=== PATIENT | female | born 1985 | race Caucasian/White ===

== ENCOUNTER 2017-01-02 16:03 | Inpatient (IN) | payer MEDICARE ==
[~2017-01-02] VITALS: Ht 177.8 cm; Wt 106.6 kg
[2017-01-02 17:39] VITALS: BP 97/60
[2017-01-02] MEDS ORDERED: PNEUMOCOCCAL VACCINE POLYVALENT 0.5 ML VIAL [PPSV23] IM ONE (18:00)
[2017-01-02 18:58] VITALS: BP 115/51
[2017-01-02] MEDS ORDERED: DULO30CA2 PO (19:28)
[2017-01-02] MEDS ORDERED: FURO40 PO (19:28)
[2017-01-02] MEDS ORDERED: TIZA4TAB4 PO (19:28)
[2017-01-02] MEDS ORDERED: TRAZ150 PO (19:28)
[2017-01-02] MEDS ORDERED: LOSA50TA37 PO (19:28)
[2017-01-02] MEDS ORDERED: LOVA20 PO (19:28)
[2017-01-02] MEDS ORDERED: OXYC10 PO (19:28)
[2017-01-02] MEDS ORDERED: CIP250 PO (19:28)
[2017-01-02] MEDS ORDERED: DOXY150T PO (19:28)
[2017-01-02] MEDS ORDERED: WARF5 PO (19:28)
[2017-01-02] MEDS ORDERED: PREG75 PO (19:28)
[2017-01-02] MEDS ORDERED: ATEN25TA PO (19:28)
[2017-01-02] MEDS ORDERED: VIST50 PO (19:28)
[2017-01-02] MEDS ORDERED: DULO60CA44 PO (19:28)
[2017-01-02] MEDS ORDERED: WARF2.5 PO (19:28)
[2017-01-02] MEDS ORDERED: POTA8CAP10 PO (19:28)
[2017-01-02] MEDS: DULoxetine HCL 30 MG CAPSULE PO SCH (20:03)
[2017-01-02] MEDS ORDERED: ACETAMINOPHEN 325 MG TABLET PO PRN (21:15)
[2017-01-03 01:10] VITALS: BP 112/68
[2017-01-03] MEDS: IBUPROFEN 600 MG TABLET PO PRN (05:57)
[2017-01-03 08:24] LABS: BASOPHILS # (AUTO) 0.06 K/uL (0.00-0.20); BASOPHILS % (AUTO) 0.6 % (0.0-2.0); EOSINOPHILS # (AUTO) 0.18 K/uL (0.00-0.70); EOSINOPHILS % (AUTO) 1.82 % (1.0-6.0); HEMATOCRIT 33.5 % (36-46); HEMOGLOBIN 10.9 g/dL (12.0-16.0); LYMPHOCYTES # (AUTO) 2.6 K/uL (1.0-4.8); LYMPHOCYTES % (AUTO) 27.6 % (22.0-44.0); MEAN CORPUSCULAR HEMOGLOBIN 28.4 pg (26.0-34.0); MEAN CORPUSCULAR HGB CONC 32.7 G/dL (31.0-37.0); MEAN CORPUSCULAR VOLUME 87 fL (80-100); MONOCYTES # (AUTO) 0.8 K/uL (0.1-1.0); MONOCYTES % (AUTO) 8.1 % (2.0-9.0); NEUTROPHILS # (AUTO) 5.9 K/uL (1.8-7.7); NEUTROPHILS % (AUTO) 61.9 % (40.0-70.0); PLATELET COUNT (AUTO) 241 K/uL (150-450); RED BLOOD CELL COUNT(AUTO) 3.85 MIL/uL (4.00-5.20); RED CELL DISTRIBUTION WIDTH 14.8 % (11.5-14.5); WHITE BLOOD COUNT (AUTO) 9.6 K/uL (4.5-11.0)
[2017-01-03 08:32] LABS: INR 1.8 (0.9-1.1); PROTHROMBIN TIME 18.8 SEC (9.4-11.6)
[2017-01-03 08:39] LABS: HEMOGLOBIN A1C 5.7 % (4.5-6.2)
[2017-01-03 09:15] LABS: ALANINE AMINOTRANSFERASE 36 U/L (12-78); ALBUMIN 3.1 g/dL (3.4-5.0); ANION GAP 9 mmol/L (8-16); ASPARTATE AMINOTRANSFERASE 23 U/L (15-37); BILIRUBIN,TOTAL 0.3 mg/dL (0.1-1.0); CALCIUM, TOTAL 8.2 mg/dL (8.8-10.5); CARBON DIOXIDE 24 mmol/L (22-29); CHLORIDE 108 mmol/L (98-107); CHOL/HDL RATIO 4.2 (3.9-5.7); CREATININE 2.21 mg/dL (0.60-1.30); GLOMERULAR FILTR. RATE CALC 26 mL/min (>60); POTASSIUM 3.8 mmol/L (3.5-5.1); SODIUM SERUM 141 mmol/L (136-145); TOTAL PROTEIN, SERUM 6.4 g/dL (6.4-8.2); UREA NITROGEN, BLOOD 33 mg/dL (7-18)
[2017-01-03] MEDS: DULoxetine HCL 60 MG CAPSULE PO SCH (09:42)
[2017-01-03] MEDS: FUROSEMIDE 40 MG TABLET PO SCH (09:42)
[2017-01-03] MEDS: POTASSIUM CHLORIDE 20 MEQ ER TABLET PO SCH (09:42)
[2017-01-03] MEDS: ATENOLOL 25 MG TABLET PO SCH (09:43)
[2017-01-03] MEDS: CIPROFLOXACIN HCL 250 MG TABLET PO SCH ×2 (09:43→20:22)
[2017-01-03] MEDS: NICOTINE 21 MG/24 HOUR PATCH TD SCH (09:44)
[2017-01-03 10:31] VITALS: BP 115/71
[2017-01-03] MEDS: DOXYCYCLINE 100 MG CAPSULE PO SCH ×2 (10:56→20:22)
[2017-01-03] MEDS: LORazepam 2 MG TABLET PO PRN (12:20)
[2017-01-03] MEDS: HALOPERIDOL 5 MG TABLET PO PRN (12:20)
[2017-01-03] MEDS: ACETAMINOPHEN/CODEINE 300-30 MG TABLET PO PRN (12:31)
[2017-01-03 16:00] VITALS: BP 140/73
[2017-01-03] MEDS: DULoxetine HCL 30 MG CAPSULE PO SCH (16:13)
[2017-01-03] MEDS ORDERED: DULoxetine HCL 30 MG CAPSULE PO SCH (17:00)
[2017-01-03] MEDS: LOVASTATIN 20 MG TABLET PO SCH (20:22)
[2017-01-03] MEDS: ZOLPIDEM TARTRATE 10 MG TABLET PO PRN (20:48)
[2017-01-04 00:59] VITALS: BP 114/66
[2017-01-04] MEDS: LORazepam 2 MG TABLET PO PRN (01:06)
[2017-01-04] MEDS: HALOPERIDOL 5 MG TABLET PO PRN (01:06)
[2017-01-04 07:26] LABS: INR 1.3 (0.9-1.1); PROTHROMBIN TIME 13.2 SEC (9.4-11.6)
[2017-01-04] MEDS: NICOTINE 21 MG/24 HOUR PATCH TD SCH (09:08)
[2017-01-04] MEDS: DOXYCYCLINE 100 MG CAPSULE PO SCH ×2 (09:09→20:14)
[2017-01-04] MEDS: DULoxetine HCL 60 MG CAPSULE PO SCH (09:09)
[2017-01-04] MEDS: ATENOLOL 25 MG TABLET PO SCH (09:09)
[2017-01-04] MEDS: POTASSIUM CHLORIDE 20 MEQ ER TABLET PO SCH (09:09)
[2017-01-04] MEDS: FUROSEMIDE 40 MG TABLET PO SCH (09:09)
[2017-01-04] MEDS: CIPROFLOXACIN HCL 250 MG TABLET PO SCH ×2 (09:09→20:14)
[2017-01-04 10:02] VITALS: BP 108/68
[2017-01-04] MEDS: ACETAMINOPHEN/CODEINE 300-30 MG TABLET PO PRN ×2 (10:02→20:14)
[2017-01-04] MEDS ORDERED: PSEUDOEPHEDRINE HCL 30 MG TABLET PO PRN (12:00)
[2017-01-04] MEDS: DULoxetine HCL 30 MG CAPSULE PO SCH (16:09)
[2017-01-04 16:45] VITALS: BP 130/84
[2017-01-04 20:00] VITALS: BP 122/78
[2017-01-04] MEDS: LOVASTATIN 20 MG TABLET PO SCH (20:14)
[2017-01-05 00:18] VITALS: BP 110/69
[2017-01-05] MEDS: IBUPROFEN 600 MG TABLET PO PRN (00:21)
[2017-01-05] MEDS: ZOLPIDEM TARTRATE 10 MG TABLET PO PRN (00:22)
[2017-01-05 05:25] VITALS: BP 130/78
[2017-01-05] MEDS: ACETAMINOPHEN/CODEINE 300-30 MG TABLET PO PRN ×2 (05:27→16:21)
[2017-01-05 08:12] LABS: INR 1.2 (0.9-1.1); PROTHROMBIN TIME 12.2 SEC (9.4-11.6)
[2017-01-05] MEDS: NICOTINE 21 MG/24 HOUR PATCH TD SCH (09:31)
[2017-01-05] MEDS: CIPROFLOXACIN HCL 250 MG TABLET PO SCH ×2 (09:32→20:18)
[2017-01-05] MEDS: DOXYCYCLINE 100 MG CAPSULE PO SCH ×2 (09:32→20:19)
[2017-01-05] MEDS: FUROSEMIDE 40 MG TABLET PO SCH (09:32)
[2017-01-05] MEDS: POTASSIUM CHLORIDE 20 MEQ ER TABLET PO SCH (09:32)
[2017-01-05] MEDS: ATENOLOL 50 MG TABLET PO SCH (09:33)
[2017-01-05] MEDS: DULoxetine HCL 60 MG CAPSULE PO SCH (09:36)
[2017-01-05 09:59] VITALS: BP 131/67
[2017-01-05 16:19] VITALS: BP 118/74
[2017-01-05] MEDS: DULoxetine HCL 30 MG CAPSULE PO SCH (16:20)
[2017-01-05] MEDS: WARFARIN SODIUM 7.5 MG TABLET PO SCH (16:20)
[2017-01-05] MEDS: LORazepam 2 MG TABLET PO PRN ×2 (18:21→23:55)
[2017-01-05] MEDS: HALOPERIDOL 5 MG TABLET PO PRN ×2 (18:21→23:55)
[2017-01-05] MEDS: LOVASTATIN 20 MG TABLET PO SCH (20:18)
[2017-01-06 00:37] VITALS: BP 117/68
[2017-01-06 08:27] VITALS: BP 135/73
[2017-01-06] MEDS: NICOTINE 21 MG/24 HOUR PATCH TD SCH (09:00)
[2017-01-06] MEDS: DOXYCYCLINE 100 MG CAPSULE PO SCH ×2 (09:22→20:21)
[2017-01-06] MEDS: ATENOLOL 50 MG TABLET PO SCH (09:23)
[2017-01-06] MEDS: FUROSEMIDE 40 MG TABLET PO SCH (09:23)
[2017-01-06] MEDS: DULoxetine HCL 60 MG CAPSULE PO SCH (09:23)
[2017-01-06] MEDS: CIPROFLOXACIN HCL 250 MG TABLET PO SCH ×2 (09:23→20:21)
[2017-01-06] MEDS: POTASSIUM CHLORIDE 20 MEQ ER TABLET PO SCH (09:23)
[2017-01-06] MEDS: IBUPROFEN 600 MG TABLET PO PRN (11:56)
[2017-01-06 12:01] VITALS: BP 120/77
[2017-01-06] MEDS: ACETAMINOPHEN/CODEINE 300-30 MG TABLET PO PRN (13:48)
[2017-01-06] MEDS: WARFARIN SODIUM 5 MG TABLET PO SCH (16:22)
[2017-01-06] MEDS: DULoxetine HCL 30 MG CAPSULE PO SCH (16:22)
[2017-01-06 16:49] VITALS: BP 121/66
[2017-01-06] MEDS: HALOPERIDOL 5 MG TABLET PO PRN (18:19)
[2017-01-06] MEDS: LORazepam 2 MG TABLET PO PRN (18:19)
[2017-01-06] MEDS: LOVASTATIN 20 MG TABLET PO SCH (20:21)
[2017-01-07 04:04] VITALS: BP 129/77
[2017-01-07 09:00] VITALS: BP 127/74
[2017-01-07] MEDS: NICOTINE 21 MG/24 HOUR PATCH TD SCH (09:00)
[2017-01-07] MEDS: ATENOLOL 50 MG TABLET PO SCH (09:13)
[2017-01-07] MEDS: CIPROFLOXACIN HCL 250 MG TABLET PO SCH ×2 (09:13→20:31)
[2017-01-07] MEDS: DULoxetine HCL 60 MG CAPSULE PO SCH ×2 (09:13→16:17)
[2017-01-07] MEDS: POTASSIUM CHLORIDE 20 MEQ ER TABLET PO SCH (09:13)
[2017-01-07] MEDS: DOXYCYCLINE 100 MG CAPSULE PO SCH ×2 (09:13→20:30)
[2017-01-07] MEDS: FUROSEMIDE 40 MG TABLET PO SCH (09:13)
[2017-01-07] MEDS: ACETAMINOPHEN/CODEINE 300-30 MG TABLET PO PRN (09:19)
[2017-01-07 09:28] LABS: INR 1.2 (0.9-1.1); PROTHROMBIN TIME 12.8 SEC (9.4-11.6)
[2017-01-07 11:30] VITALS: BP 122/76
[2017-01-07] MEDS: LORazepam 2 MG TABLET PO PRN (16:16)
[2017-01-07] MEDS: HALOPERIDOL 5 MG TABLET PO PRN (16:17)
[2017-01-07] MEDS: WARFARIN SODIUM 7.5 MG TABLET PO SCH (16:17)
[2017-01-07 16:39] VITALS: BP_SYST 138; BP_SYST 69; BP_DIAS 88
[2017-01-07] MEDS: LOVASTATIN 20 MG TABLET PO SCH (20:30)
[2017-01-08 02:13] VITALS: BP 127/68
[2017-01-08] MEDS: ACETAMINOPHEN/CODEINE 300-30 MG TABLET PO PRN ×3 (02:25→16:41)
[2017-01-08] MEDS: FUROSEMIDE 40 MG TABLET PO SCH (08:28)
[2017-01-08] MEDS: ATENOLOL 50 MG TABLET PO SCH (08:28)
[2017-01-08] MEDS: CIPROFLOXACIN HCL 250 MG TABLET PO SCH ×2 (08:29→20:24)
[2017-01-08] MEDS: POTASSIUM CHLORIDE 20 MEQ ER TABLET PO SCH (08:29)
[2017-01-08] MEDS: DOXYCYCLINE 100 MG CAPSULE PO SCH ×2 (08:30→20:24)
[2017-01-08] MEDS: NICOTINE 21 MG/24 HOUR PATCH TD SCH (08:30)
[2017-01-08] MEDS: DULoxetine HCL 60 MG CAPSULE PO SCH ×2 (08:30→16:41)
[2017-01-08 09:00] VITALS: BP 137/78
[2017-01-08] MEDS: LORazepam 2 MG TABLET PO PRN ×2 (11:10→18:49)
[2017-01-08 16:24] VITALS: BP 120/79
[2017-01-08] MEDS: WARFARIN SODIUM 5 MG TABLET PO SCH (16:41)
[2017-01-08] MEDS: HALOPERIDOL 5 MG TABLET PO PRN (18:49)
[2017-01-08] MEDS: ZOLPIDEM TARTRATE 10 MG TABLET PO PRN (20:24)
[2017-01-08] MEDS: LOVASTATIN 20 MG TABLET PO SCH (20:24)
[2017-01-09 06:57] VITALS: BP 122/77
[2017-01-09] MEDS: ACETAMINOPHEN/CODEINE 300-30 MG TABLET PO PRN (06:59)
[2017-01-09 08:42] LABS: ALBUMIN 3.2 g/dL (3.4-5.0); BILIRUBIN,TOTAL 0.3 mg/dL (0.1-1.0); CHOL/HDL RATIO 4.4 (3.9-5.7); CREATININE 1.66 mg/dL (0.60-1.30); POTASSIUM 4.2 mmol/L (3.5-5.1); TOTAL PROTEIN, SERUM 6.6 g/dL (6.4-8.2)
[2017-01-09] MEDS: FUROSEMIDE 40 MG TABLET PO SCH (08:43)
[2017-01-09] MEDS: CIPROFLOXACIN HCL 250 MG TABLET PO SCH (08:43)
[2017-01-09] MEDS: IBUPROFEN 600 MG TABLET PO PRN (08:43)
[2017-01-09] MEDS: POTASSIUM CHLORIDE 20 MEQ ER TABLET PO SCH (08:43)
[2017-01-09] MEDS: ATENOLOL 50 MG TABLET PO SCH (08:44)
[2017-01-09 08:50] VITALS: BP 137/72
[2017-01-09 08:53] LABS: INR 1.3 (0.9-1.1); PROTHROMBIN TIME 13.4 SEC (9.4-11.6)
[2017-01-09 09:00] VITALS: BP 128/76
[2017-01-09] MEDS: DULoxetine HCL 60 MG CAPSULE PO SCH (10:01)
[2017-01-09] MEDS: NICOTINE 21 MG/24 HOUR PATCH TD SCH (10:01)
[2017-01-09] MEDS: DOXYCYCLINE 100 MG CAPSULE PO SCH (10:01)
[2017-01-09 11:04] LABS: VITAMIN B12 LEVEL 593 pg/mL (211-911)
[2017-01-09] MEDS ORDERED: DULO60CA44 PO (11:20)
[2017-01-09] MEDS ORDERED: DOXY100C PO (11:20)
[2017-01-10 06:16] LABS: HEPATITIS Bs ANTIGEN SCREEN P Negative (Negative); HEPATITIS C AB SCREEN 0.1 s/co ratio (0.0-0.9)
== END 2017-01-09 12:15 | disposition home or self-care (01) | DRG 885 ==
LOC: EDBD → B2S 17:38
DX: F33.2 Major depressive disorder, recurrent severe without psychotic features (principal); N19 Unspecified kidney failure; M86.9 Osteomyelitis, unspecified; D68.61 Antiphospholipid syndrome; R45.851 Suicidal ideations; T50.901A Poisoning by unspecified drugs, medicaments and biological substances, accidental (unintentional), initial encounter; D64.9 Anemia, unspecified; E66.3 Overweight; F15.90 Other stimulant use, unspecified, uncomplicated; F41.9 Anxiety disorder, unspecified; I10 Essential (primary) hypertension; L93.0 Discoid lupus erythematosus; M79.7 Fibromyalgia; S98.112A Complete traumatic amputation of left great toe, initial encounter; Z87.891 Personal history of nicotine dependence; Z89.412 Acquired absence of left great toe; Z88.8 Allergy status to other drugs, medicaments and biological substances; Z28.21 Immunization not carried out because of patient refusal
CPT/HCPCS: 80074; 82306; 82607; 82746; 83036; 83735; 84439; 84443; 87081; 90471